=== PATIENT | female | born 1930 | race Caucasian/White ===

== ENCOUNTER → 2017-01-31 | Outpatient (CLI) | payer MEDICARE, OTHER | LOC: OPSV 07:45 → CT 10:30 | DX: K90.9 Intestinal malabsorption, unspecified (principal); N18.3 Chronic kidney disease, stage 3 (moderate); Z85.118 Personal history of other malignant neoplasm of bronchus and lung; R91.8 Other nonspecific abnormal finding of lung field; K76.9 Liver disease, unspecified; E86.0 Dehydration | CPT/HCPCS: 71260; 96360; 96361; J7030; J7050; Q9965 ==

== ENCOUNTER → 2017-03-03 | Outpatient (CLI) | payer MEDICARE, OTHER | LOC: OPSV 11:54 → MRI 13:45 | DX: M89.9 Disorder of bone, unspecified (principal); E86.0 Dehydration; R42 Dizziness and giddiness; K90.9 Intestinal malabsorption, unspecified; D50.9 Iron deficiency anemia, unspecified; N18.3 Chronic kidney disease, stage 3 (moderate); D63.1 Anemia in chronic kidney disease; R10.822 Left upper quadrant rebound abdominal tenderness; R91.1 Solitary pulmonary nodule; R06.02 Shortness of breath; R05 Cough; R10.9 Unspecified abdominal pain; M50.30 Other cervical disc degeneration, unspecified cervical region; Z85.118 Personal history of other malignant neoplasm of bronchus and lung; Z91.81 History of falling | CPT/HCPCS: 72156; 96360; 96361; A9577; J7030 ==